=== PATIENT | female | born 1960 ===

== ENCOUNTER 2021-01-22 08:29 | Outpatient (REF) | payer MEDICAID, SELFPAY ==
--- NOTE | ~2021-01-22 | XR_ITS ---
EXAMINATION: XR KNEE, RIGHT CLINICAL INFORMATION: Pain COMPARISON: None TECHNIQUE: Two views of the right knee. FINDINGS: Bone alignment is normal. No fracture or dislocation is seen. Joint spaces are normal. There is no joint effusion.. XR/XR knee RT 2V IMPRESSION: Normal right knee.
== END 2021-01-22 08:30 | disposition home or self-care (01) ==
LOC: HO.XRAY 08:29
PROVIDERS: PCP Registered Nurse Community Health; Visit Provider Registered Nurse Community Health
DX: M25.561 Pain in right knee (principal)
CPT/HCPCS: 73560

== ENCOUNTER 2021-03-12 15:31 | Outpatient (REF) | payer MEDICAID, SELFPAY ==
--- NOTE | ~2021-03-12 | MM_ITS ---
EXAMINATION: MM SCREENING DIGITAL BREAST TOMOSYNTHESIS, BILATERAL CLINICAL INFORMATION: Screening. Asymptomatic. The lifetime risk of breast cancer based on the Tyrer-Cuzick Model is 6%. COMPARISON: Mammography: 05/04/2019, and multiple prior exams dating back to 04/12/2010; targeted right breast ultrasound 04/06/2017, targeted left breast ultrasound 10/02/2016, bilateral breast ultrasound 06/09/2013. TECHNIQUE: Digital breast tomosynthesis is performed in both the craniocaudal and mediolateral oblique views along with computer-aided detection (CAD). Synthesized 2D images are generated from the tomosynthesis. FINDINGS: The breasts are heterogeneously dense, which may obscure small masses (ACR BI-RADS breast composition Category c). There is fibrocystic parenchymal pattern with waxing and waning oval and round smooth masses with obscured margins similar to multiple prior studies. There is no significant mass or architectural abnormality. No abnormal calcifications. The axilla and skin contours are unremarkable. MM/MM tomosynthesis screening BI IMPRESSION: Fibrocystic parenchymal pattern with waxing and waning cysts as previously noted. ASSESSMENT: BI-RADS 2: Benign RECOMMENDATION: Routine annual mammography screening. This patient's information was entered into a reminder system with a target due date for their next mammogram.
== END 2021-03-12 15:32 | disposition home or self-care (01) ==
LOC: HO.MAMMO 15:31
PROVIDERS: PCP Registered Nurse Community Health; Visit Provider Registered Nurse Community Health
DX: Z12.31 Encounter for screening mammogram for malignant neoplasm of breast (principal)
CPT/HCPCS: 77063; 77067

== ENCOUNTER 2021-08-24 10:11 | Emergency (ER) | payer MEDICAID, SELFPAY ==
[2021-08-24 10:27] VITALS: BP 156/67; PULSE 81; RESP 18; TEMP 36.6; O2SAT 98; BMI 31.6
--- NOTE | 2021-08-24 10:51 | ED_ITS ---
HPI - Back Pain/Injury General Chief Complaint: Back Pain/Injury Stated Complaint: BACK PAIN Time Seen by Provider: 08/24/21 10:32 Source: patient Mode of arrival: ambulatory Limitations: no limitations History of Present Illness HPI Narrative: 61-year-old female medical history presents to the emergency department with concerns of left-sided flank pain/back pain that started a week ago and has been progressively worsening. She states she was just sitting at home when this pain started, it came on suddenly, and became worse over time. She describes as an intermittent stabbing pain to her left flank, and at times it feels like a tightness. She states the pain is better when she sitting up ray, and worse when she coughs, or when she sleeps on her left side. She states she has been taking Tylenol, which has been helping slightly. She denies chest pain, shortness of breath, fevers, chills, nausea, vomiting, diarrhea, weakness, abdominal pain, urinary symptoms, weakness, sensory and motor deficits. She is not a smoker. She is not on control, or hormone replacement therapy. She denies long travel. She also denies trauma to the area MD elicited complaint: back pain Onset (ago): day(s) (7) Timing: intermittent Severity: severe Similar Symptoms Previously: No Quality: sharp and other (Tightness) Location: left flank Radiation: none Exacerbating factors: none Relieving factors: none Associated symptoms: denies other symptoms Treatments prior to arrival: acetaminophen Work related injury: No Related Data Previous Rx's Medication Instructions Recorded cyclobenzaprine 10 mg tablet 10 mg PO Q8H #10 tab 08/24/21 lidocaine 5 % topical patch 1 patch TOPICAL DAILY #15 ea 08/24/21 (Lidoderm) naproxen 500 mg tablet 500 mg PO BID #14 tab 08/24/21 Allergies Allergy/AdvReac Type Severity Reaction Status Date / Time Gadolinium-Containing Allergy Mild VOMITING Unverified 07/12/20 16:58 Contrast Medi POST IV [Gadolinium-Containing INJECTION Agents] PEANUT BUTTER Allergy Unknown DIFFICULTY Uncoded 07/12/20 16:58 BREATHING/HIVES/ITCHING Review of Systems Review of Systems: Yes all other systems are reviewed and are negative Constitutional: Constitutional: Reports no additional constitutional complaints, Denies body ache(s), Denies chills, Denies fever(s), Denies headache(s) and Denies weakness Eyes: Eyes: Reports no additional eye complaints and Denies change in vision ENT: Reports system reviewed and no additional complaints, except as documented, Denies dizziness, Denies headache(s), Denies nasal congestion, Denies nasal discharge and Denies neck pain Cardiovascular: Cardiovascular: Reports no additional cardiovascular complaints, Denies chest pain, Denies leg edema and Denies dyspnea Respiratory: Respiratory: Reports no additional respiratory complaints, Denies cough and Denies dyspnea Gastrointestinal: Gastrointestinal: Reports no additional gastrointestinal complaints, Denies abdominal pain, Denies diarrhea, Denies nausea and Denies vomiting Genitourinary: Genitourinary: Reports no additional female genitourinary complaints and Denies urinary incontinence Musculoskeletal: Musculoskeletal: Reports no additional musculoskeletal complaints, Reports back pain (Left-sided flank pain), Denies arthralgias, Denies joint swelling, Denies neck pain, Denies numbness and Denies tingling Integumentary/Breasts: Skin/Breast: Reports system reviewed and no additional complaints, except as docu and Denies rash Neurologic: Reports system reviewed and no additional complaints, except as documented, Denies Abnormal speech present, Denies dizziness, Denies headache(s), Denies numbness, Denies tingling and Denies weakness PMFSH Past Medical History Medical History (Updated 08/24/21 @ 11:06 by Tawnya Steinberg NP) No known health problems Social History Social History Advance Directives: No Advance Directives Information Provided: No Patient : No Physical Exam Vital Signs: Vital Signs: Last Vital Signs Temp 97.8 F 08/24/21 10:27 Pulse 81 08/24/21 10:27 Resp 18 08/24/21 10:27 BP 156/67 H 08/24/21 10:27 Pulse Ox 98 08/24/21 10:27 Body Mass Index 31.6 Const: General: cooperative, healthy appearing, comfortable and no acute distress Orientation/consciousness: patient oriented x3 Limitations: no limitations HENMT: Head: Yes normal to inspection Ears: hearing grossly normal bilaterally General nose exam: Normal external nose present Face and sinus: Yes normal facial exam Mouth: Normal oral and palatal mucosa present Throat: Yes posterior oropharynx normal Eyes: General: appearance normal, both eyes and all related structures Pupils: Equal, round and reactive pupils present Neck: Neck: Yes normal visual inspection Chest: Chest palpation & inspection: normal inspection of the chest Resp: Effort & Inspection: normal respiratory effort Auscultation: clear to auscultation bilaterally Cardio: Rate: regular rate Rhythm: regular rhythm Peripheral pulses: Peripheral pulses 2+ throughout GI: Inspection: Yes normal to inspection Palpation (GI): Soft to palpation and nontender Auscultation: normal bowel sounds : General: Yes no CVA tenderness Back/Spine/Pelvis: Back: no CVA tenderness Thoracic/Lumbar Spine: thoracic and lumbar spine normal to inspection, paraspinal muscle tenderness on the left in the lower thoracic and No straight leg raise positive Skin: General skin exam: no rashes or lesions noted Neuro: General: patient oriented x3, no focal motor deficits and normal sensation to monofilament Cranial nerves: Yes Equal, round and reactive pupils present Cognition (Neuro): normal cognition Speech: No Abnormal speech present Gait exam (Neuro): Normal gait present Motor exam (neuro): 5/5 motor strength present throughout Sensory Exam: Normal double simultaneous stimulation for sensation Extrem: General: Yes normal to inspection, Yes full ROM and Yes no calf tenderness (negative lee ann sign) Course Reevaluation(s) Reevaluation #1: Urine clean. This was likely muscle strain. Patient will be sent home on an anti-inflammatory, and muscle relaxer. She has been advised to return to the emergency department new or worsening symptoms. She is safe for discharge home with PCP follow-up. Time: 11:29 MDM - Back Pain/Injury MDM Narrative Medical decision making narrative: 61-year-old female with no known medical history presents to the emergency department with 7 days of progressively worsening left flank pain. She denies trauma to the area. States it is better when she is sitting upright, worse with certain movements, and deep breathing. Denies fevers, chills, CP, SOB, changes in urinatation, weakness, recent travel, hormone use, smoking, trauma She has been taking Tylenol at home, which has been helping. Upon physical examination pain is reproducible over the left flank with palpation There is paraspinous tenderness to palpation over at the level of the lower thoracic spine. No midline tenderness. Her back has full range of motion, pain-free. 5/5 strength upper and lower extremities, with good reflexes. Sensation and motor intact, no saddle paresthesia. No focal neuro deficits. Lungs are clear to auscultation bilaterally. Abdomen soft nontender not distended At this time the plan is to apply a Lidoderm patch, and administer Toradol for pain. An x-ray is not warranted at this time, she denies trauma to the area. UA will be obtained to rule out urinary tract infection. Physical examination and history are not consistent with cauda equina. Based off of physical examination this is unlikely a pulmonary embolism, patient is saturating 99% on room air, she is not tachycardic, she denies recent travel, hormone use, in she denies shortness of breath. Medical Records Attestation: I reviewed the patient's medical records. Lab Data Attestation: I reviewed the patient's lab results. Labs: Lab Results 08/24/21 Range/Units 10:58 Urine Color YELLOW Urine Appearance HAZY Urine pH 6.0 (5.0-8.0) Ur Specific Capron 1.025 (1.005-1.025) Urine Protein NEG (NEG-TRACE) MG/DL Urine Glucose (UA) NEG (NEG) MG/DL Urine Ketones NEG (NEG) MG/DL Urine Blood NEG (NEG) Urine Nitrite NEG (NEG) Ur Leukocyte Esterase NEG (NEG) Urine RBC 0 (0) /HPF Urine WBC 0-2 (0-4) /HPF Ur Squamous Epith Cells 3+ /LPF Urine Bacteria TRACE /LPF Discharge Plan Discharge Clinical Impression: Flank pain Strain of lumbar region Qualifiers: Encounter type: initial encounter Qualified Code(s): S39.012A - Strain of muscle, fascia and tendon of lower back, initial encounter Patient Disposition: Home, Self-Care Instructions: Low Back Strain (ED), Flank Pain (ED) Additional Instructions: Naproxen as an anti-inflammatory medication which is been prescribed and sent to your pharmacy. Cyclobenzaprine as a muscle relaxer, this medication can make you sleepy, it is important that you do not take this medication of your going to drive. Follow-up with her primary care provider Return to the emergency department new or worsening symptoms. Prescriptions: New naproxen 500 mg tablet 500 mg PO BID Qty: 14 RF: 0 lidocaine [Lidoderm] 5 % adhesive patch,medicated 1 patch topical DAILY Qty: 15 RF: 0 cyclobenzaprine 10 mg tablet 10 mg PO Q8H Qty: 10 RF: 0 Referrals: Jailyn Raymond NP [Primary Care Provider] - 2 days Stand Alone Forms: Work/School Release
[2021-08-24 11:09] LABS: Appearance Urine HAZY; Color Urine YELLOW; Glucose Urine UA NEG (NEG); Leukocyte Esterase Urine NEG (NEG); Nitrite Urine NEG (NEG); Specific Gravity - Urine 1.025 (1.005-1.025); Urine Blood NEG (NEG); Urine Ketones NEG (NEG); Urine Protein NEG (NEG-TRACE)
[2021-08-24] MEDS: Lidocaine 4 % Patch ADH..PATCH 1 PATCH TRANSDERMA (11:22)
[2021-08-24] MEDS: Ketorolac Tromethamine 15 MG/ML VIAL 30 MG IM (11:22)
[2021-08-24 11:25] LABS: Bacteria Urine TRACE /LPF; RBC Urine 0 /HPF (0); Squamous Epithelial Cell Urine 3+ /LPF; WBC Urine 0-2 /HPF (0-4)
== END 2021-08-24 12:09 | disposition home or self-care (01) ==
PROVIDERS: Nurse Practitioner Family; Emergency Provider Emergency Medicine; PCP Registered Nurse Community Health
DX: S39.012A Strain of muscle, fascia and tendon of lower back, initial encounter (principal); R10.9 Unspecified abdominal pain; X58.XXXA Exposure to other specified factors, initial encounter; Y93.9 Activity, unspecified; Y92.9 Unspecified place or not applicable; Y99.9 Unspecified external cause status; Z79.899 Other long term (current) drug therapy
CPT/HCPCS: 81001; 96372; 99284; J1885

== ENCOUNTER 2022-03-14 13:57 | Outpatient (REF) | payer MEDICAID, SELFPAY ==
--- NOTE | ~2022-03-14 | MM_ITS ---
EXAMINATION: MM SCREENING DIGITAL BREAST TOMOSYNTHESIS, BILATERAL CLINICAL INFORMATION: Screening. Asymptomatic. The lifetime risk of breast cancer based on the Tyrer-Cuzick Model is 6%. COMPARISON: Mammography: 03/12/2021, 05/04/2019, 04/16/2018, 04/06/2017, 08/11/2016; ultrasound right breast 04/06/2017 TECHNIQUE: Digital breast tomosynthesis is performed in both the craniocaudal and mediolateral oblique views along with computer-aided detection (CAD). Synthesized 2D images are generated from the tomosynthesis. FINDINGS: The breasts are heterogeneously dense, which may obscure small masses (ACR BI-RADS breast composition Category c). Fibrocystic parenchymal pattern is similar to prior studies with scattered bilateral waxing and waning oval and small round masses. There is no interval dominant mass or architectural abnormality. There are no abnormal calcifications. The axilla and skin contours are unremarkable. There are no significant changes from prior studies. MM/MM tomosynthesis screening BI IMPRESSION: No mammographic evidence of malignancy. ASSESSMENT: BI-RADS 2: Benign RECOMMENDATION: Routine annual mammography screening. This patient's information was entered into a reminder system with a target due date for their next mammogram.
== END 2022-03-14 13:58 | disposition home or self-care (01) ==
LOC: HO.MAMMO 13:57
PROVIDERS: Visit Provider Registered Nurse Community Health
DX: Z12.31 Encounter for screening mammogram for malignant neoplasm of breast (principal)
CPT/HCPCS: 77063; 77067

== ENCOUNTER 2023-04-06 14:56 | Outpatient (REF) | payer MEDICAID, SELFPAY ==
--- NOTE | ~2023-04-06 | MM_ITS ---
EXAMINATION: MM SCREENING DIGITAL BREAST TOMOSYNTHESIS, BILATERAL CLINICAL INFORMATION: Screening. Asymptomatic. The lifetime risk of breast cancer based on the Tyrer-Cuzick Model is 6%. COMPARISON: Mammography: 03/14/2022, 03/12/2021, 05/03/2019; right breast ultrasound 04/06/2017, left breast ultrasound 10/14/2016. TECHNIQUE: Digital breast tomosynthesis is performed in both the craniocaudal and mediolateral oblique views along with computer-aided detection (CAD). Synthesized 2D images are generated from the tomosynthesis. FINDINGS: The breasts are heterogeneously dense, which may obscure small masses (ACR BI-RADS breast composition Category c). There are fibrocystic changes with multiple bilateral smooth round and oval smooth masses, symmetrically increased from prior exam. No focal significant mass or architectural abnormality. No abnormal calcifications. The axilla and skin contours are unremarkable. MM/MM tomosynthesis screening BI IMPRESSION: Bilateral fibrocystic changes. No focal mammographic evidence of malignancy. ASSESSMENT: BI-RADS 2: Benign RECOMMENDATION: -Patient may benefit from additional bilateral adjunct screening with breast ultrasound. -Otherwise, routine bilateral annual screening mammography. This patient's information was entered into a reminder system with a target due date for their next mammogram.
== END 2023-04-06 14:57 | disposition home or self-care (01) ==
LOC: HO.MAMMO 14:56
PROVIDERS: PCP Registered Nurse; Visit Provider Registered Nurse Community Health
DX: Z12.31 Encounter for screening mammogram for malignant neoplasm of breast (principal)
CPT/HCPCS: 77063; 77067

== ENCOUNTER 2023-04-29 09:02 | Outpatient (REF) | payer MEDICAID, SELFPAY | END 2023-04-29 09:03 | disposition home or self-care (01) | LOC: HO.NEURO 09:02 | PROVIDERS: PCP Registered Nurse; Visit Provider Registered Nurse | DX: R20.0 Anesthesia of skin (principal); R20.2 Paresthesia of skin | CPT/HCPCS: 95885; 95913 ==

== ENCOUNTER 2023-05-21 16:31 | Outpatient (REF) | payer MEDICAID, SELFPAY ==
[2023-05-21 18:37] LABS: Alanine Aminotransferase 17 U/L (0-31); Albumin Level 4.3 g/dL (3.5-5.0); Alkaline Phosphatase 59 U/L (39-117); Aspartate Amino Transferase 18 U/L (5-31); Bilirubin Direct 0.1 mg/dL (0.0-0.5); Bilirubin Total 0.3 mg/dL (0.0-1.0); Total Protein 7.8 g/dL (6.5-8.0)
== END 2023-05-21 16:32 | disposition home or self-care (01) ==
LOC: HO.HHCL 16:31
PROVIDERS: Visit Provider Registered Nurse
DX: R76.8 Other specified abnormal immunological findings in serum (principal)
CPT/HCPCS: 36415; 80076

== ENCOUNTER 2023-07-20 15:19 | Outpatient (REF) | payer MEDICAID, SELFPAY ==
[2023-07-21 03:59] LABS: HBS Num1 28.28 mIU/mL (0-7.99); HBc Num1 6.05 S/CO (0.00-0.79); HBsAGNum1 0.35 S/CO (0.00-0.99); Hepatitis B Surface Antigen Negative (Negative); ~HepC Num1 3.14 S/CO (0.00-0.79); ~Hepatitis A Antibody IgM Nonreactive (Nonreactive); ~Hepatitis B Surface Antibody REACTIVE (Nonreactive); ~Hepatitis C Antibody Reactive (Nonreactive)
[2023-07-21 05:17] LABS: Hepatitis B Core Antibody Reactive (Nonreactive)
[2023-07-22 14:54] LABS: HCV Log PCR <1.18 NOT DETECTED Log IU/mL (NOT DETECTED); HepC Viral Load <15 NOT DETECTED IU/mL (NOT DETECTED)
== END 2023-07-20 15:20 | disposition home or self-care (01) ==
LOC: HO.HHCL 15:19
PROVIDERS: Visit Provider Registered Nurse
DX: R76.8 Other specified abnormal immunological findings in serum (principal)
CPT/HCPCS: 36415; 86704; 86706; 86709; 86803; 87340; 87522

== ENCOUNTER 2024-04-07 08:00 | Outpatient (REF) | payer MEDICAID, SELFPAY ==
[2024-04-07 08:16] LABS: MANUAL DIFF FLAG NO
[2024-04-07 08:55] LABS: Basophils Percent Auto 0.8 % (0-2); Eosinophils Absolute Auto 0.2 X10*3/uL (0.0-0.4); Eosinophils Percent Auto 3.2 % (0-4); Hematocrit 41.4 % (37.0-47.0); Hemoglobin 13.6 g/dl (12.0-16.0); Imm Gran Abs Auto 0.01 X10*3/uL (0.00-0.03); Imm Gran Pct Auto 0.2 % (0.0-0.4); Lymphocytes Absolute Auto 2.2 X10*3/uL (1.2-4.9); Lymphocytes Percent Auto 46.4 % (20-40); Mean Corpuscular HGB Conc 32.9 g/dl (31.0-35.0); Mean Corpuscular Hemoglobin 28.3 pg (27.0-33.0); Mean Corpuscular Volume 86.3 fL (80.0-98.0); Mean Platelet Volume 9.6 fL (9.4-12.3); Monocytes Absolute Auto 0.4 X10*3/uL (0.1-1.2); Monocytes Percent Auto 8.4 % (2-11); Platelet Count 257 X10*3/uL (160-400); Red Cell Distribution Width 12.3 % (11.0-16.0); White Blood Count 4.8 X10*3/uL (4.8-10.8)
[2024-04-07 09:20] LABS: Alanine Aminotransferase 15 U/L (0-31); Albumin Level 4.1 g/dL (3.5-5.0); Alkaline Phosphatase 59 U/L (39-117); Anion Gap 10 (12-20); Aspartate Amino Transferase 17 U/L (5-31); Bilirubin Total 0.5 mg/dL (0.0-1.0); Blood Urea Nitrogen 14 mg/dL (9-16); Calcium 10.1 mg/dL (8.4-10.2); Carbon Dioxide 29 mmol/L (22-29); Chloride 103 mmol/L (96-108); Cholesterol 248 mg/dL (<200); Estimated Glomerular Filt Rate > 60; Glucose Random 99 mg/dL (60-115); HDL Cholesterol 62 mg/dL (>40); LDL Cholesterol Calculated 173 mg/dL (<100); Potassium 4.2 mmol/L (3.3-5.1); Sodium 138 mmol/L (135-145); Total Protein 7.5 g/dL (6.5-8.0); Triglycerides 66 mg/dL (<150)
[2024-04-07 09:35] LABS: TSH reflex Free T4 1.74 uIU/mL (0.32-4.0)
[2024-04-07 09:37] LABS: HIV AB/AG Nonreactive (Nonreactive); HIV Num 1 0.05 S/CO (0.00-0.99)
== END 2024-04-07 08:01 | disposition home or self-care (01) ==
LOC: HO.LAB 08:00
PROVIDERS: PCP Family Medicine; Visit Provider Family Medicine
DX: E66.9 Obesity, unspecified (principal); Z68.32 Body mass index [BMI] 32.0-32.9, adult; Z13.9 Encounter for screening, unspecified
CPT/HCPCS: 36415; 80053; 80061; 84443; 85025; 87389

== ENCOUNTER 2024-04-19 08:05 | Outpatient (REF) | payer MEDICAID, SELFPAY ==
--- NOTE | ~2024-04-19 | MM_ITS ---
EXAMINATION: MM SCREENING DIGITAL BREAST TOMOSYNTHESIS, BILATERAL CLINICAL INFORMATION: Screening. Asymptomatic. COMPARISON: Mammography: This study is compared with prior exams dating back to 2018. TECHNIQUE: Digital breast tomosynthesis is performed in both the craniocaudal and mediolateral oblique views along with computer-aided detection (CAD). Synthesized 2D images are generated from the tomosynthesis. FINDINGS: The breasts are heterogeneously dense, which may obscure small masses (ACR BI-RADS breast composition Category c). There are no significant masses, abnormal calcifications, or other abnormalities. There are multiple, bilateral, well-circumscribed masses patient representative of cysts as noted on prior sonography. MM/MM tomosynthesis screening BI IMPRESSION: No mammographic evidence of malignancy. ASSESSMENT: BI-RADS BI-RADS 2 - Benign Findings RECOMMENDATION: Routine annual mammography screening. 1 year F/U This examination should not preclude the clinical evaluation of a suspicious palpable abnormality. This patient's information was entered into a reminder system with a target due date for their next mammogram.
== END 2024-04-19 08:06 | disposition home or self-care (01) ==
LOC: HO.MAMMO 08:05
PROVIDERS: PCP Family Medicine; Visit Provider Family Medicine
DX: Z12.31 Encounter for screening mammogram for malignant neoplasm of breast (principal)
CPT/HCPCS: 77063; 77067

== ENCOUNTER → 2024-04-19 08:30 | Outpatient (BNV) | payer MEDICAID, SELFPAY | PROVIDERS: PCP Family Medicine; Visit Provider Radiology Diagnostic Radiology | DX: Z12.31 Encounter for screening mammogram for malignant neoplasm of breast (principal) | CPT/HCPCS: 77063; 77067 ==

== ENCOUNTER 2024-05-10 08:37 | Outpatient (REF) | payer MEDICAID, SELFPAY ==
--- NOTE | ~2024-05-10 | XR_ITS ---
EXAMINATION: XR HIP, LEFT CLINICAL INFORMATION: Pain left hip. COMPARISON: None available. TECHNIQUE: AP view of the pelvis and 2 views of the left hip. FINDINGS: Degenerative changes in the imaged lower lumbar spine. Eggshell calcification overlies lateral aspect of the right hemipelvis. Mild degenerative changes on AP views of the right hip. Left hip: Mild degenerative changes in the left hip with joint space narrowing and hypertrophic change. Alignment maintained. XR/XR hip LT min 2V IMPRESSION: 1. Mild degenerative changes in the left hip. 2. Degenerative changes in the imaged lower lumbar spine. 3. Additional imaging with CT scan or MRI should be considered for further evaluation if there is clinical concern for fracture or other underlying pathology.
== END 2024-05-10 08:38 | disposition home or self-care (01) ==
LOC: HO.HOSX 08:37
PROVIDERS: Visit Provider Physician Assistant
DX: M70.62 Trochanteric bursitis, left hip (principal)
CPT/HCPCS: 73502; 99212

== ENCOUNTER 2024-05-10 09:09 | Outpatient (AMB) | payer MEDICAID, SELFPAY ==
--- NOTE | 2024-05-10 09:18 | A.OFFVIS_ITS ---
Vital Signs 05/10/24 09:23 Height 5 ft 5 in Weight 190 lb BMI 31.6 Intake Visit Reasons: N/P left hip pain / denies injury /fall Intake Note: Birttany a 64 year old female who presents today as a new patient for an evaluation of left hip pain. Patient reports her pain has been present for about 6-7 months, denies injury. No previous tx. Her pain is located on the lateral aspect of hip. She describes her discomfort as a stabbing pressure. States difficulty with sleeping, prolong walking or sitting/driving. Denies numbness or tingling. 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 She currently states she has pain at the lateral aspect of her hip as well as a stabbing pressure sensation and discomfort. She rates the pain as 9 on the scale of 0-10. Her pain is aggravated with sleeping, prolonged walking and sitting. She denies any numbness, tingling, or sharp pain. She finds relief with ibuprofen and elevation. She has not had any previous injury and no prior treatment. [facility] Medical History (Updated 05/10/24 @ 09:57 by Rafa Dukes PA-C) No known health problems Social History (Updated 05/10/24 @ 09:26 by Ally Clements Osmany) Patient Tobacco Use Status: Never used Tobacco Current occupational status: unemployed Review of Systems Const All systems reviewed & are unremarkable except as noted in HPI and below Physical Exam Vital Signs: BMI result Body Mass Index 31.6 Const General: cooperative, healthy appearing, comfortable, no acute distress, well developed and alert Orientation/consciousness: patient oriented x3 HEENT Head: Yes normal to inspection, Yes normocephalic and Yes atraumatic Eyes General: appearance normal, both eyes and all related structures Resp Effort & Inspection: normal respiratory effort and able to speak in complete sentences Cardio Rate: regular rate Peripheral pulses: Peripheral pulses 2+ throughout GI Palpation (GI): Soft to palpation Skin Lesions: no lesions Rashes: no rashes Neuro General: patient oriented x3 Extrem Other: Left hip: Normal to inspection. No pain with ROM of the hip. Pain along the greater trochanter. No pain with hip flexion or abduction. Negative tenderness along the SI joint, Negative SLR. NVI. Results Reviewed Results Reviewed: Xrays were obtained in the office today and personally reviewed by me of the left hip show mild oa Assessment & Plan Assessment & Plan (1) Trochanteric bursitis, left hip: Code(s): M70.62 - Trochanteric bursitis, left hip Category: Medical Plan We discussed options which include PT, NSAIDs and injections. The patient will defer on the injection today and proceed with PT and NSAIDs. I also sent a prescription of Celebrex to her pharmacy. If symptoms persist, she will contact me for an injection, otherwise, PRN. Orders: Orders XR hip LT w [id number] Today Nita Weir PA-C M25.559 - Pain in unspecified hip XR hip LT min 2V Today Rafa Dukes PA-C M25.552 - Pain in left hip PT Evaluation and Treatment Today Rafa Dukes PA-C M70.62 - Trochanteric bursitis, left hip Medications: New celecoxib (Celebrex) 200 mg PO BID 60 caps 3RF 30 days Rafa Dukes PA-C Patient Instructions: Scribed for Rafa Dukes PA-C, by Jose Frazier clinical specialist medical device, on 05/10/2024 at 9:15 AM EST.? I, Rafa Dukes PA-C, have personally reviewed and agree with the information entered by the scribe. Coding Level of Care Code New Pt Level 3 (94377) Diagnoses Trochanteric bursitis, left hip M70.62
[2024-05-10 09:23] VITALS: BMI 31.6
== END 2024-05-10 10:12 | disposition home or self-care (01) ==
PROVIDERS: PCP Family Medicine; Visit Provider Physician Assistant
DX: M70.62 Trochanteric bursitis, left hip (principal)
CPT/HCPCS: 99203

== ENCOUNTER 2024-11-04 09:00 | Outpatient (REF) | payer MEDICAID, SELFPAY ==
[2024-11-04 14:18] LABS: Cholesterol 236 mg/dL (<200); HDL Cholesterol 59 mg/dL (>40); LDL Cholesterol Calculated 165 mg/dL (<100); Triglycerides 64 mg/dL (<150)
== END 2024-11-04 09:01 | disposition home or self-care (01) ==
LOC: HO.CHCLDS 09:00
PROVIDERS: Visit Provider Family Medicine
DX: E78.00 Pure hypercholesterolemia, unspecified (principal)
CPT/HCPCS: 36415; 80061

== ENCOUNTER 2025-05-17 13:46 | Outpatient (REF) | payer MEDICAID, SELFPAY ==
--- NOTE | ~2025-05-17 | MM_ITS ---
EXAMINATION: MM DIAGNOSTIC DIGITAL BREAST TOMOSYNTHESIS, BILATERAL CLINICAL INFORMATION: Patient had a previous left breast lump upper outer quadrant. Patient have any palpable lumps or pain today. COMPARISON: Mammography: Comparison is made with relevant prior exams. TECHNIQUE: Digital breast mammography with tomosynthesis is performed in both the craniocaudal and mediolateral oblique views along with computer-aided detection (CAD). FINDINGS: The breasts are heterogeneously dense, which may obscure small masses (ACR BI-RADS breast composition Category c). There are bilateral circumscribed oval masses which wax and wane consistent with benign fibrocystic changes. Prior ultrasounds demonstrated simple cysts. There are no significant masses, abnormal calcifications, or other abnormalities. Results are provided to the patient at time of visit by the technologist. MM/MM tomosynthesis diagnostic BI IMPRESSION: Bilateral circumscribed oval masses which wax and wane consistent with benign fibrocystic changes and cysts on prior ultrasound. Benign. Patient does not have any palpable lump or pain today and declined ultrasound evaluation today. . ASSESSMENT: BI-RADS BI-RADS 2 - Benign Findings RECOMMENDATION: 1 year F/U This patient's information was entered into a reminder system with a target due date for their next mammogram. Electronically signed by: Michelle Bang DO 05/17/2025 02:35 PM EDT
--- OUTSIDE RECORDS SUMMARY | 2025-05-17 14:28 | XMS_ITS | Clinical Summary ---
Author Organization [employer] Address [address] [place] [address] [address] [place] [address] Care Team Providers Care Uat Tester Name Role Phone Lisa Pope MD Primary Care Provider [phone] Allergies Active Allergy Reactions Criticality Noted Date Comments [place] Oil 06/20/2019 Other reaction(s): rash, rash, Tongue swelling Alexandra 06/20/2019 Other reaction(s): rash & swollen tongue Peanut-Containing Drug Products 06/05/2015 Other reaction(s): itchy rash Sesame Seed Extract Allergy Skin Test 12/06/2018 Other reaction(s): Tongue swelling Medications EPINEPHrine (Epipen) 0.3 MG/0.3ML injection syringe INJECT 0.3 MILLIGRAM BY INTRAMUSCULAR ROUTE IF NEEDED NEEDED 05/27/20 22 Active Acetaminophen 500 MG capsule Take 2 capsules by mouth every 8 (eight) hours. 02/20/20 21 Active calcium carbonate 1500 (600 Ca) MG tablet Take 1 tablet (1,500 mg) by mouth every 12 (twelve) hours. 180 tablet 2 03/30/20 24 Active cholecalcifero l (Vitamin D-3) 50 MCG (1999 UT) capsule Take 1 capsule (50 mcg) by mouth Once per day. 120 capsule 3 03/30/20 24 Active famotidine (Pepcid) 20 MG tabletIndicati ons:Gastroesop hageal reflux disease without esophagitis Take 1 tablet (20 mg) by mouth if needed in the morning and at bedtime for heartburn or indigestion. 120 tablet 3 03/30/20 24 Active Blood Pressure kit 1 Units Once per day. 1 kit 03/30/20 24 Active celecoxib (CeleBREX) 200 MG capsule Take 200 mg by mouth 2 times daily. 05/10/20 24 Active amLODIPine (Norvasc) 5 MG tabletIndicati ons:Hypertensi on, unspecified type TAKE 1 TABLET (5 MG) BY MOUTH ONCE PER DAY. 90 tablet 1 04/10/20 Active doxepin (SINEquan) 10 MG capsule TAKE 1 CAPSULE BY MOUTH EVERYDAY AT BEDTIME 90 capsule 1 05/04/20 25 Active doxepin (SINEquan) 10 MG capsule TAKE 1 CAPSULE BY MOUTH AT BEDTIME 90 capsule 1 11/07/19 25 2024 Discontinued Active Problems Problem Noted Date Diagnosed Date Primary hypertension 11/03/2024 Assessment & Plan (11/03/2024 4:31 PM EST): Nursing Visit Instructions: - If SBP < 140/DBP <90 mmHg in more than 75% of home self-monitoring, continue current medication regimen and make f/u with PCP in 3 month - If SBP >140-165/DBP >90-115 mmHg , add increase amlodipine and f/u with PCP in 1 month - If SBP > 165/ DBP> 115 mmHg, consult with covering provider - If SBP <90/DBP <50 mmHg, consult with covering provider. Left hip pain 03/30/2024 Assessment & Plan (03/31/2024 9:12 AM EDT): Referral to Orthopaedic Surgeon and Physical Therapy for further treatment of symptoms. Primary insomnia 03/30/2024 Assessment & Plan (08/25/2024 11:10 AM EDT): Improvement of duration of sleep and decrease waking up time, sleeping for 5-6 hours. Will cont doxepin. RTC prn and 3-4 months for BP f.up Assessment & Plan (08/11/2024 2:25 PM EDT): Relevant orders: Doxepin (SINEquan) 10 MG capsule Hepatitis C antibody test positive 07/20/2023 Overview (07/23/2023): Pt reports she was unaware of Positive Hep C result in the past Reactive on 05/18/2015. Undetected on 07/21/2015. Positive Hep C antibody and viral load not detectable on 07/20/23 Assessment & Plan (07/20/2023 5:56 PM EDT): Will order Hepatitis profile and Hep C RNA Notify results F/u PRN Numbness and tingling in both hands 02/19/2023 Overview (04/29/2023): EMG 04/29/23. Notified but no results in notification Chronic cough 02/19/2023 Seasonal allergic rhinitis 02/19/2023 Encounter for health-related screening 3 Overview (07/23/2023): Immunizations: Due shingles vaccine, Discuss at f/u HIV: nonreactive 02/03/2015. Hep C: Reactive on 05/18/2015. Undetected on 07/21/2015. Viral load not detectable on 07/20/23 Hepatitis B: Surface antibodies reactive 07/20/23 Pap Smear: 05/27/22 NILM; HPV neg Mammogram: 03/14/22 BIRADS 2. 04/06/23 BIRADS 2 Colonoscopy: 02/03/23 WNL; Diverticulosis. Repeat screening in 7-10 years Eye: upcoming appt Dental: March 2023, 6 months cleaning. Assessment & Plan (03/31/2024 9:21 AM EDT): Discussed current medications and refills. Discussed vaccinations due, declined COVID, Flu, and RSV but agreed to have TDAP administered today. BP is uncontrolled continue to monitor at home. F/u on 04/18/2024. Relevant Medications TDAP Vaccine 7 yrs + Blood Pressure Kit Cholecalciferol (Vitamin D-3) 50 MCG (2000 UT) Capsule Calcium Carbonate 1500 ( 600 Ca) MG Tabet Vitamin D deficiency 03/01/2018 Positive reaction to tuberculin skin test 2016 Gastroesophageal reflux disease without esophagi tis 09/13/2015 Hypercholesterolemia 09/13/2015 Impaired glucose tolerance 09/13/2015 Obstructive sleep apnea syndrome 09/13/2015 Overview (07/20/2023): Pt reports the CPAP supplies refills were for her old machine Needs supplies to fit her new machine. Assessment & Plan (04/26/2024 11:21 AM EDT): Reports needs refills on her supplies Assessment & Plan (07/20/2023 5:56 PM EDT): Will task DME team to contact [employer] Pt needs supplies that match her new [employer]ala machine F/u PRN with new PCP Overweight 09/13/2015 Resolved Problems Problem Noted Date Diagnosed Date Resolved Date Increased frequency of urination 09/13/2015 03/30/2024 Irregular periods 09/13/2015 03/30/2024 Encounters Date Type Department Care Team Description 05/03/2025 Travel 05/03/2025 Refill [facility] [address] [place] [address] Lisa Pope MD 04/09/2025 Refill [facility] [address] [place] [address] Lisa Pope MD Hypertension, unspecified type 03/29/2025 Telephone [facility] [address] [place] [address] Lisa Pope MD Referral 03/10/2025 Orders Only [facility] [address] [place] [address] Marina Pineda MD Mass of upper outer quadrant of left breast (Primary Dx); Transaminitis 03/02/2025 4:00 PM EDT Office Visit [facility] [address] [place] [address] Marina Pineda MD Mass of upper outer quadrant of left breast (Primary Dx) 03/02/2025 Travel 02/27/2025 Telephone [facility] [address] [place], [place] [phone] Lisa Pope MD Nurse Triage from Last 3 Months Immunizations Immunization Administration Dates Next Due TD (adult), 2 Lf tetanus tox oid, preservative free, adsorbed 01/10/2011 Tdap 03/30/2024,01/17/2014 Family History Medical History Relation Name Comments Diabetes Brother Lupus Daughter Heart disease Father Relation Name Status Comments Brother Daughter Father Mother Social History Tobacco Use Types Packs/Day Years Used Date Smoking Tobacco: Never Passive Smoke Exposure: Never Smokeless Tobacco: Never Tobacco Cessation:Counseling Given: Not Answered Alcohol Use Standard Drinks/Week Comments Not Currently 0 (1 standard drink = 0.6 oz pur e alcohol) Depression Answer Date Recorded Patient Health Questionnaire-9 Score 2 11/03/2024 Patient Health Questionnaire-9 Score 2 11/03/2024 Last PHQ-9: Questionnaire Data Not on file 0 11/03/2024 Housing Stability Answer Date Recorded What is your housing situation today? I have brent alegria 08/10/[address] you li ve. Do you have problems with any of the following? None of the above 08/10/2023 Food Insecurity Answer Date Recorded Within the past 12 months, y ou worried that your food would run out before you got money to buy more: Never True 08/10/2023 Within the past 12 months,th e food you bought just didn't last and you didn't have enough money to get more: Never True Transportation Answer Date Recorded In the past 12 months, has l ack of transportation kept you from medical appts, meetings, work or from getting things needed for daily living? No 08/10/2023 Utilities Answer Date Recorded In the past 12 months, has t he electric, gas, oil or water company threatened to shut off services in your home? No 08/10/2023 Depression Answer Date Recorded Patient Health Questionnaire-2 Score 1 11/03/2024 Comments No Sex and Gender Information Value Date Recorded Sex Assigned at Female 08/25/2022 10:17 AM EDT Legal Sex Female 10:17 AM EDT Gender Identity Female 08/25/2022 10:17 AM EDT Sexual Orientation Straight 08/25/2022 10 :17 AM EDT Last Filed Vital Signs Vital Sign Reading Time Taken Comments Blood Pressure 153/66 03/02/2025 3:35 PM EDT Pulse 67 03/02/2025 3:35 PM EDT Temperature 36.5 C (97.7 F) 03/02/2025 3:35 PM EDT Respiratory Rate 20 03/02/2025 3:35 PM EDT Oxygen Saturation 98% 03/02/2025 3:35 PM EDT Inhaled Oxygen Concentration - - Weight 83 kg (183 lb) 03/02/2025 3:35 PM EDT Height 165.1 cm (5' 5 ) 03/02/2025 3:35 PM EDT Body Mass Index 30.45 03/02/2025 3:35 PM EDT Plan of Treatment Upcoming Encounters Date Type Department Care Team (Late st Contact Info) Description 07/11/2025 2:30 PM EDT Office Visit [facility] [address] [place] [address] Mariposa Boswell, OD [address] [place] [address] Health Maintenance Due Date Last Done Comments CT Colonography 1962 FIT DNA/Cologuard 1962 FIT 1962 FOBT 1962 Sigmoidoscopy 1962 Disability Screening 1962 Pneumococcal Vaccine: 50+ Years (1 of 1 - PCV) 2012 Zoster Vaccines (1 of 2) 2012 Colonoscopy 02/03/2023 02/03/2013 Colorectal Cancer Screening 02/03/2023 COVID-19 Vaccine ( season) 2024 12/14/2021, 06/01/2021, 05/11/2021 SDOH Screening 03/23/2025 03/23/2024 Mammogram 04/19/2025 04/19/2024, 03/26, 04/06/2023, Additional history exists Influenza Vaccine (#1) 2025 Alcohol/Substance Use Screening 11/03/2025 11/03/2024 Depression Screening 11/03/2025 11/03/2024, 11/03/19 Tobacco Screening 03/02/2026 03/02/2025 Cervical Cancer Screening 05/27/2027 HPV/Cotest 05/27/2027 05/27/2022, 03/31/2017 Pap Smear 05/27/2027 05/27/2022 Lipid Panel 11/04/2029 11/04/2024, 03/26, 02/19/2023, Additional history exists DTaP/Tdap/Td Vaccines (3 - Td or Tdap) 03/30/2034 03/30/2024, 01/17/2014, 01/10/2011 RSV Patients and Patients Aged 60 years or older (1 - 1-dose 75+ series) 2037 Hepatitis C Screening Completed 07/20/2023, 023 HIV Screening Completed 04/07/2024 HIB Vaccines Aged Out No longer eligi ble based on patient's age to complete this topic HPV Vaccines Aged Out No longer eligi ble based on patient's age to complete this topic Hepatitis A Vaccines Aged Out No long er eligible based on patient's age to complete this topic Hepatitis B Vaccines Aged Out No long er eligible based on patient's age to complete this topic IPV Vaccines Aged Out No longer eligi ble based on patient's age to complete this topic Meningococcal B Vaccine Aged Out No l onger eligible based on patient's age to complete this topic Meningococcal Vaccine Aged Out No yrn lia eligible based on patient's age to complete this topic RSV under 20 months Aged Out No longe r eligible based on patient's age to complete this topic Rotavirus Vaccines Aged Out No longer eligible based on patient's age to complete this topic Procedures Procedure Name Priority Date/Time Associated Diagnosis Comments LIPID PANEL, STANDARD Routine 11/04/2024 9:01 AM EST Hypercholesterolem ia BI MAMMOGRAM SCREENING TOMOSYNTHESIS BILATERAL Routine 04/19/2024 8:40 AM EDT HIV 1/2 ANTIGEN/ANTIBODY, FOURTH GENERATION W/RFL Routine 04/07/2024 8:15 AM EDT Encounter for health-related screening HEPATITIS PANEL, GENERAL Routine 07/20/2023 3:23 PM EDT Hepatitis C antibody test positive THINPREP IMAGING PAP AND HPV MRNA E6/E7 WITH REFLEX TO HPV 16,18/45 Routine 05/27/2022 3:02 PM EDT COLONOSCOPY Routine 02/03/2013 10:08 AM EDT from Last 3 Months or Most Recently Relevant to Health Maintenance Results * (ABNORMAL) Lipid Panel, Standard (11/04/2024 9:01 AM EST) Triglycerides 64 <150 mg/dL [facility] Comment:Desirable Triglyceri de: less than 150 mg/dLBorderline High Triglyceride 150-199 mg/dLHigh Triglyceride: 200-499 mg/dLVery High Triglyceride: greater than or equal to 5OO mg/dL Cholesterol 236(H) <200 mg/dL [facility] Comment:Desirable Cholestero l: less than 200 mg/dLBorderline High Cholesterol: 200-239 mg/dLHigh Cholesterol: greater than 239 mg/dL LDL Cholesterol Calculated 165(H) <100 mg/dL [facility] Comment:Desirable LDL: less than 100 mg/dLNear Optimal/Above Optimal LDL: 110- 129 mg/dLBorderline High LDL: 130-159 mg/dLHigh LDL: 160-189 mg/dLVery High LDL: greater than or equal to 190 mg/dL HDL Cholesterol 59 >40 mg/dL [facility] Comment:Desirable HDL: great er than 40 mg/dL Note: This HDL assay may give artificially low results in patients with liver disease. Blood Venous blood specimen / Unknown 11/04/2024 9:01 AM EST 11/04/2024 1:59 PM EST us Lisa Pope MD LAB BLOOD ORDERABLES Final Re sult [facility] [address] [place] [address] [phone] * BI Mammogram Screening Tomosynthesis Bilateral (04/19/2024 8:40 AM EDT) Anatomical Region Laterality Modality Breast Bilateral Mammography 04/19/2024 8:40 AM EDT Narrative 05/18/2024 11:19 PM EDT [facility] [address] [place] [address] Mammography Report Signed Patient: Brittany Park MR#: [id number] 6 : 1960 Acct:[id number] Age/Sex: 64 / F ADM Date: 04/19/24 Loc: HO.MAMMO Attending Dr: Lisa Pope MD Ordering Physician: iLsa Pope MD Results: 2Beni gn Findings Date of Service: 04/19/24 Follow Up: 1 Year From Orig inal Mammogram Procedure(s): MM tomosynthesis screening BI Accession Number(s): [id number] cc: Lisa Pope MD EXAMINATION: MM SCREENING DIGITAL BREAST TOMOSYNTHESIS, BILATERAL CLINICAL INFORMATION: Screening. Asymptomatic. COMPARISON: Mammography: This study is compared with prior exams dating back to 2018. TECHNIQUE: Digital breast tomosynthesis is performed in both the craniocaudal and mediolateral oblique views along with computer-aided detection (CAD). Synthesized 2D images are generated from the tomosynthesis. FINDINGS: The breasts are heterogeneously dense, which may obscure small masses (ACR BI-RADS breast composition Category c). There are no significant masses, abnormal calcifications, or other abnormalities. There are multiple, bilateral, well-circumscribed masses sales support representative of cysts as noted on prior sonography. MM/MM tomosynthesis screening BI IMPRESSION: No mammographic evidence of malignancy. ASSESSMENT: BI-RADS BI-RADS 2 - Benign Findings RECOMMENDATION: Routine annual mammography screening. 1 year F/U This examination should not preclude the clinical evaluation of a suspicious palpable abnormality. This patient's information was entered into a reminder system with a target due date for their next mammogram. Dictated By: Kayleigh Ma MD Signed By: <Electronically signed by Kayleigh Ma MD in OV> 05/18/24 2315 DD/ 0840 TD/TT: Dermatology Teacher: Procedure Note Donotuseinterpreter, Image - 05/18/2024 [facility] [address] [place] [address] Mammography Report Signed Patient: Melinda Park#: [id number] 6 : 2Acct:[id number] Age/Sex: 64 / FADM Date: 04/19/24 Loc: MARCIO Attending Dr: Lisa Pope MD Ordering Physician: Lisa Pope MDResults: 2Beni gn Findings Date of Service: 04/19/24Follow Up: 1 Year From Orig inal Mammogram Procedure(s): MM tomosynthesis screening BI Accession Number(s): [id number] cc: Lisa Pope MD EXAMINATION: MM SCREENING DIGITAL BREAST TOMOSYNTHESIS, BILATERAL CLINICAL INFORMATION: Screening. Asymptomatic. COMPARISON: Mammography: This study is compared with prior exams dating back to 2018. TECHNIQUE: Digital breast tomosynthesis is performed in both the craniocaudal and mediolateral oblique views along with computer-aided detection (CAD). Synthesized 2D images are generated from the tomosynthesis. FINDINGS: The breasts are heterogeneously dense, which may obscure small masses (ACR BI-RADS breast composition Category c). There are no significant masses, abnormal calcifications, or other abnormalities. There are multiple, bilateral, well-circumscribed masses sales support representative of cysts as noted on prior sonography. MM/MM tomosynthesis screening BI IMPRESSION: No mammographic evidence of malignancy. ASSESSMENT: BI-RADS BI-RADS 2 - Benign Findings RECOMMENDATION: Routine annual mammography screening. 1 year F/U This examination should not preclude the clinical evaluation of a suspicious palpable abnormality. This patient's information was entered into a reminder system with a target due date for their next mammogram. Dictated By: Kayleigh Ma MD Signed By: <Electronically signed by Kayleigh Ma MD in OV> 05/18/24 2315 DD/ 0840 TD/TT: Dermatology Teacher: us Lisa Pope MD [facility] BI PROCEDURES Edited Resu lt - Final * HIV-1/2 Antigen and Antibodies, Fourth Generation, with Reflexes (04/07/2024 8:15 AM EDT) HIV AB/AG Nonreactive Nonreactive [facility] Comment:HIV-1 p24 Ag and/or HIV-1/HIV-2 Ab not detected.A test result that is nonreactive does not exclude thepossibility of exposure to or infection with HIV-1 and/orHIV-2. Nonreactive results in this assay for individualswith prior exposure to HIV-1 and/or HIV-2 may be due toantigen and antibody levels that are below the limit ofdetection of this assay.The [facility] HIV Ag/Ab Combo assay result andsupplemental assay results should be interpreted inconjunction with the patient's clinical presentation,history and other laboratory results. If the results areinconsistent with clinical evidence, additional testing issuggested to confirm the result. Blood Venous blood specimen / Unknown 04/07/2024 8:15 AM EDT 04/07/2024 8:15 AM EDT Lisa Pope MD LAB BLOOD ORDERABLES Final Re sult Performing Organization Address City/[facility]/ZIP Co de Phone Number [facility] [address] [place] [address] [phone] * (ABNORMAL) Hepatitis A,B,C Profile (07/20/2023 3:23 PM EDT) Hepatitis A IgM Nonreactive Nonreactive [facility] Comment:IgM antibodies to FRANKLIN V not detected; does not exclude earlyacute or recovered HAV infection. ~Hepatitis B Surface Antibody REACTIVE Nonreactive [facility] Comment:REACTIVE: > 11.99 mI U/mL Hepatitis B Core Antibody Reactive Nonreactive [facility] Comment:Presumptive evidence of anti-HBc. Hepatitis C Antibody Reactive(A) Nonreactive [facility] Comment:Presumptive evidence of antibodies to HCV. Hepatitis B Surface Ag Negative Negative [facility] Blood Venous blood specimen / Unknown 07/20/2023 3:23 PM EDT 07/20/2023 4:05 PM EDT us Joselyn Iverson RN [facility] LAB BLOOD ORDERABLES Final Result Performing Organization Address [facility]/ZIP Co de Phone Number [facility] [address] [place] [address] [phone] * THINPREP TIS PAP AND HPV mRNA E6/E7 WITH REFLEX TO HPV 16,18/45 (05/27/2022 3:02 PM EDT) Clinical Information: None given [facility] COMMENT SEE COMMENT [facility] Comment: EXPLANATORY NOTE: The Pap is a screening test for cervical cancer. It is not a diagnostic test and is subject to false negative and false positive results. It is most reliable when a satisfactory sample, regularly obtained, is submitted with relevant clinical findings and history, and when the Pap result is evaluated along with historic and current clinical information. COMMENT: This Pap test has been evaluated with computer assisted technology. [facility] Cytotechnologis t: SEE COMMENT [facility] Comment: SXA, CT(ASCP) CT screening location: [place] [address] HPV nRNA E6/E7 Not Detected Not Detected [facility] Comment: Methodology: User Interface Engineer-Mediated Amplification This assay detects E6/E7 viral messenger RNA (mRNA) from 14 high-risk HPV types (16,18,31,33,35,39,45,51,52,56,58,59,66,68). Cervical sources are required for HPV testing. If a vaginal source from a patient who has had a total hysterectomy with removal of cervix was submitted, please contact the testing laboratory for alternative testing options. For additional information, please refer to http://education.TranslateMedia/faq/GAP503m2 (This link if provided for information/ educational purposes only.) Interpretation/ Result: Negative for intraepithelial lesion or malignancy. [facility] LMP: NONE [facility] Prev. BX: NONE [facility] Prev. PAP: NONE [facility] SOURCE: Cervix [facility] Statement Of Adequacy: SEE COMMENT [facility] Comment: Satisfactory for evaluation. Endocervical/transformation zone component present. 05/27/2022 3:02 PM EDT us Jailyn Raymond NP LAB PATHOLOGY ORDERABLES Final Result [facility] [address] * Colonoscopy (02/03/2013 10:08 AM EDT) Anatomical Region Laterality Modality Endoscopy us Historical Provider ENDOSCOPY PROCEDURE ORDER ZOIE Final Result from Last 3 Months or Most Recently Relevant to Health Maintenance Insurance [facility] C3 Care Teams Uat Tester Relationship Specialty Start Date End Date Lisa Pope MD [address] [place] [phone] PCP - General Family Medicine 02/01/24
--- OUTSIDE RECORDS SUMMARY | 2025-05-17 14:28 | XMS_ITS | Clinical Summary ---
Author Organization [facility] Address [address] [place] [address] Care Team Providers Care Rollout Manager Name Role Phone Unavailable Primary Care Provider Unavailabl e Social History Tobacco Use Types Packs/Day Years Used Date Smoking Tobacco: Never Assessed Comments Unknown Sex and Gender Information Value Date Recorded Sex Assigned at Not on file Legal Sex Female 5:07 AM EST Gender Identity Not on file Sexual Orientation Not on file Plan of Treatment Health Maintenance Due Date Last Done Comments Breast Cancer Screening 1962 DTaP,Tdap,and Td Vaccines (1 - Tdap) 1981 Cervical Cancer Screening: P ap Smear 1983 Pneumococcal Vaccine: 50+ Ye ars (1 of 1 - PCV) 2012 Zoster Vaccines (1 of 2) 2012 COVID-19 Vaccine ( - 2023-2 5 season) 2024 Depression Screening 10/26/2024 Influenza Vaccine (#1) 2025 RSV Immunization Adult Patie nts (1 - 1-dose 75+ series) 2037 HIB Vaccines Aged Out No longer eligi [...] on patient's age to complete this topic MMR Vaccines Aged Out No longer eligi ble based on patient's age to complete this topic Meningococcal ACWY Vaccine Aged Out N o longer eligible based on patient's age to complete this topic Meningococcal B Vaccine Aged Out No l onger eligible based on patient's age to complete this topic RSV Immunization Patients Un adwoa 20 months Aged Out No longer eligible b ased on patient's age to complete this topic Varicella Vaccines Aged Out No longer eligible based on patient's age to complete this topic
== END 2025-05-17 13:47 | disposition home or self-care (01) ==
LOC: HO.MAMMO 13:46
PROVIDERS: PCP Family Medicine; Visit Provider Internal Medicine
DX: N63.21 Unspecified lump in the left breast, upper outer quadrant (principal)
CPT/HCPCS: 77062; 77066

== ENCOUNTER → 2025-05-17 14:00 | Outpatient (BNV) | payer MEDICAID, SELFPAY | PROVIDERS: PCP Family Medicine; Visit Provider Internal Medicine | DX: N63.21 Unspecified lump in the left breast, upper outer quadrant (principal); R92.333 Mammographic heterogeneous density, bilateral breasts | CPT/HCPCS: 77062; 77066 ==